=== PATIENT | female | born 1960 | race Caucasian/White ===

== ENCOUNTER → 2017-01-25 | Day surgery (SDC) | payer OTHER ==
[~2017-01-25] MED LIST: ADULT ONE DAI200 MCG PO; CALCIUM 5001 TAB PO; CLARITIN10 M2 PO; ESTRACE0.5 MG PO; NASACORT10.8 ML; RED YEAST RICE600 MG PO
--- NOTE | ~2017-01-25 | OR ---
Unit #: [id number] #: [id number] Patient: ELFEGO SILVESTRE [id number] [address] [address] [id number] O MR#: [id number] NAME: ELFEGO SILVESTRE ROOM: Date of Procedure: 01/25/2017 Admission Date: 01/25/2017 Surgeon: Mando Portillo M.D. : 1960 Attending Physician: Mando Portillo M.D. Primary Care Physician: Solomon Balderas M.D. OPERATIVE REPORT PREOPERATIVE DIAGNOSIS Colorectal cancer screening in an average risk patient. PROCEDURES PERFORMED Colonoscopy and biopsy. POSTOPERATIVE DIAGNOSES 1. Single sessile polyp in the proximal transverse colon. The latter was removed and sent for histology. The polyp was diminutive. 2. Rest of the examination up to cecum and terminal ileum was normal. The quality of the prep was excellent. No diverticula or hemorrhoids were seen. RECOMMENDATIONS Follow up results of polyp histology and consider repeat colonoscopy in 5 years. SEDATION USED MAC. DESCRIPTION OF PROCEDURE Following detailed explanation of potential risks and complications of a colonoscopy, namely perforation, bleeding, complication related to station, the patient was brought to GI lab and laid in the left lateral decubitus position. A digital rectal examination was performed, which was normal. Lubricated tip of the Olympus video colonoscope was inserted through the anus and advanced under direct vision. The scope was advanced and passed up to sigmoid into descending colon. No diverticula were seen in this area. The scope tip was then navigated all the way up to cecum with visualization of the ileocecal valve and the appendiceal orifice. Preparation was excellent with good visualization and photodocumentations obtained. Last several inches of terminal ileum were also visualized after intubation of the ileocecal valve and appeared normal. Successive segments of the colonic mucosa were examined upon withdrawal. A single sessile polyp was noted in the proximal transverse colon. The latter was diminutive and was removed using cold biopsy forceps. No additional polyps noted. The patient did not have any diverticulosis nor any hemorrhoids. The scope was withdrawn. The patient returned to the recovery area. She tolerated the procedure without any postprocedure complications. Unit #: [id number] #: [id number] Patient: ELFEGO SILVESTRE Dictated by... Kaci Lema/miri TD: 01/25/2017 11:13 JOB #: [id number] CC: Tata Rosales M.D. OPERATIVE REPORT Page 1 of 1 X Mando Portillo MD X PROCEDURE OPERATIVE NOTE
== END | disposition home or self-care (01) ==
LOC: COPS 07:47
DX: Z12.11 Encounter for screening for malignant neoplasm of colon (principal); K63.5 Polyp of colon; Z79.899 Other long term (current) drug therapy; Z90.710 Acquired absence of both cervix and uterus; Z98.890 Other specified postprocedural states
CPT/HCPCS: 88305; J2250